=== PATIENT | female | born 1995 | race Caucasian/White ===

== ENCOUNTER 2019-12-16 18:33 | Emergency (ER) | payer BC, SELFPAY ==
--- NOTE | 2019-12-16 18:44 | PC.NURSE ---
PT DECLINED ICE FOR COMFORT AND WHEELCHAIR TO ROOM AND RADIOLOGY
[2019-12-16 18:45] VITALS: BP 137/68; PULSE 100; RESP 14; TEMP 37.2; O2SAT 100
--- NOTE | 2019-12-16 18:53 | ED.GENADULT ---
HPI - General Adult General Chief complaint: Upper Respiratory Infection Stated complaint: Swollen Tonsils Time Seen by Provider: 12/16/19 18:53 Source: patient Mode of arrival: ambulatory Limitations: no limitations History of Present Illness HPI narrative: 24-year-old female patient presents to the [facility] with complaints of enlarged tonsils that started yesterday and is gotten worse today. Patient states that the pain does get better with ibuprofen and denies any pain at this time. Patient denies any fevers, runny nose. Denies any coughing, chest pain or shortness of breath. Patient states she is still able to swallow at this time. Related Data Home Medications Medication Instructions Recorded Confirmed L norgest/e.estradiol-e.estrad 1 tablet PO DAILY 12/16/19 12/16/19 [Tito] Allergies Allergy/AdvReac Type Severity Reaction Status Date / Time oxycodone AdvReac Nausea and Verified 12/16/19 18:54 Vomiting Review of Systems Review of Systems: Narrative: CONSTITUTIONAL: Denies fever, chills, or sweats. EYES: Denies visual changes, redness, or discharge. ENT: Denies rhinorrhea, congestion, positive sore throat, denies otalgia. CARDIOVASCULAR: Denies chest pain, palpitations, or edema. RESPIRATORY: Denies cough or dyspnea. GASTROINTESTINAL: Denies abdominal pain, nausea, vomiting, or diarrhea. GENITOURINARY: Denies dysuria or hematuria. SKIN: Denies rash or itching. MUSCULOSKELETAL: Denies back pain, joint pain, or myalgia. NEUROLOGIC: Denies headache, numbness, or weakness. PSYCHIATRIC: Denies anxiety or depression. [facility] Family History Family History Mother Hypertension Family history of elevated blood lipids Family history of diabetes mellitus in first degree relative Grandparent Cerebrovascular accident, Onset Age: 83 Family history of malignant neoplasm of breast, Onset Age: 65 Social History Social History Smoking status: Never smoker Second hand tobacco smoke exposure: No Alcohol intake: never Comments At the time of my signature I agree with nursing past medical history, surgical, social, and family history. There is no relevant family history pertinent to the presenting complaint. Exam Narrative: Exam Narrative: GENERAL: Well-appearing, well-nourished, and in no acute distress. HEAD: Normocephalic, atraumatic. EYES: PERRLA and EOMI. ENT: Nares clear, no rhinorrhea or epistaxis. Mucous membranes moist. Posterior pharynx with 3+ tonsil enlargement and tonsil stones noted to bilateral tonsils. No erythema noted. NECK: Supple. No lymphadenopathy CHEST: Clear to auscultation. No respiratory distress. HEART: Regular rate and rhythm. No murmur heard. Normal peripheral pulses. ABDOMEN: Soft, nontender, nondistended, normal active bowel sounds. EXTREMITIES: Normal range of motion. No edema. SKIN: Warm, dry, no rash. NEURO: No focal deficits. Alert and oriented x3. Course Vital Signs Vital signs: Vital Signs Temperature 37.2 C 12/16/19 18:45 Pulse Rate 100 12/16/19 18:45 Respiratory Rate 14 12/16/19 18:45 Blood Pressure 137/68 12/16/19 18:45 Pulse Oximetry 100 12/16/19 18:45 Temperature 37.2 C 12/16/19 18:45 Pulse Rate 100 12/16/19 18:45 Respiratory Rate 14 12/16/19 18:45 Blood Pressure 137/68 12/16/19 18:45 Pulse Oximetry 100 12/16/19 18:45 Vital signs reviewed. Medical Decision Making Differential Diagnosis Differential Diagnosis: Differential diagnosis: Viral pharyngitis, pharyngitis, group A strep, infectious mononucleosis, gonococcal pharyngitis, exudative pharyngitis, oral candidiasis. Chronic allergies, postnasal drip, GERD, abscess formation, but glottitis, retropharyngeal abscess formation, or airway obstruction. Notify patient that her bedside strep test is negative. Discussed with her that the tonsil st
== END 2019-12-16 19:08 | disposition home or self-care (01) ==
PROVIDERS: Emergency Provider Nurse Practitioner Family; PCP Nurse Practitioner Family
DX: J35.8 Other chronic diseases of tonsils and adenoids (principal); J03.90 Acute tonsillitis, unspecified
CPT/HCPCS: 87081; 87880; 99203; G0463

== ENCOUNTER 2021-11-11 12:34 | Emergency (ER) | payer BC, SELFPAY ==
[2021-11-11 12:40] VITALS: BP 122/71; PULSE 99; RESP 16; TEMP 36.8; O2SAT 100
--- NOTE | 2021-11-11 12:48 | ED.SKABFB ---
HPI - Skin/Abscess/Foreign Bdy General Chief complaint: Skin/Abscess/Foreign Body Stated complaint: Rash Time Seen by Provider: 11/11/21 12:48 Source: patient Mode of arrival: ambulatory Limitations: no limitations History of Present Illness HPI narrative: 26 yo F presents with c/o rash to arms, legs and trunk starting 2 days ago. Not itchy or painful. Has not tried any OTC steroid cream. [place] the [place] No exposure to new foods, hygiene products, etc. All systems reviewed and negative except as noted above. Related Data Home Medications Medication Instructions Recorded Confirmed L norgest/E estradiol-E estrad 1 tablet PO DAILY 12/16/19 11/11/21 0.15 mg-30 mcg (84)/10 mcg(7) tabs,3mos (Jaimiess) meloxicam 15 mg tablet 15 tablet PO DAILY 11/11/21 11/11/21 Allergies Allergy/AdvReac Type Severity Reaction Status Date / Time oxycodone AdvReac Nausea and Verified 11/11/21 12:42 Vomiting Review of Systems Review of Systems: CONSTITUTIONAL: Denies fever, chills, or sweats. EYES: Denies visual changes, redness, or discharge. ENT: Denies rhinorrhea, congestion, sore throat, or otalgia. CARDIOVASCULAR: Denies chest pain, palpitations, or edema. RESPIRATORY: Denies cough or dyspnea. GASTROINTESTINAL: Denies abdominal pain, nausea, vomiting, or diarrhea. GENITOURINARY: Denies dysuria or hematuria. SKIN: Reports rash, no itching. MUSCULOSKELETAL: Denies back pain, joint pain, or myalgia. NEUROLOGIC: Denies headache, numbness, or weakness. PSYCHIATRIC: Denies anxiety or depression. All other systems reviewed are negative, except as documented in HPI. [facility] Family History Family History Mother Hypertension Family history of elevated blood lipids Family history of diabetes mellitus in first degree relative Grandparent Cerebrovascular accident, Onset Age: 83 Family history of malignant neoplasm of breast, Onset Age: 65 Social History Social History Smoking status: Never smoker Second hand tobacco smoke exposure: No Alcohol intake: never Comments At time of signature, agree with nursing past medical, surgical, social and family history. There is no relevant family history pertinent to the presenting complaint. Exam Narrative: GENERAL: This is a well-nourished, well-developed patient, in no apparent distress. HEAD: normocephalic, atraumatic. EYES: PERRL. Sclera clear/white. Vision is grossly intact. EARS: External ears normal NOSE: External nose normal NECK: Neck supple, non-tender without lymphadenopathy, masses or thyromegaly. CARDIOVASCULAR: Regular rate and rhythm without murmurs, gallops, or rubs. RESPIRATORY: Clear to auscultation. Breath sounds equal bilaterally. No wheezes, rales, or rhonchi. SKIN: warm, Dry, intact, good texture and turgor. several papulosquamous oval lesions to trunk, neck, upper arms and upper legs. NEURO: awake, alert, and oriented to person, place and time. There were no obvious focal neurologic abnormalities. EXTREMITIES: No joint tenderness, effusion, or edema noted. Course Course Level of Care: Express Care Visit Vital Signs Vital signs: Vital Signs Temperature 36.8 C 11/11/21 12:40 Pulse Rate 99 11/11/21 12:40 Respiratory Rate 16 11/11/21 12:40 Blood Pressure 122/71 11/11/21 12:40 Pulse Oximetry 100 11/11/21 12:40 Oxygen Delivery Room Air 11/11/21 12:40 Temperature 36.8 C 11/11/21 12:40 Pulse Rate 99 11/11/21 12:40 Respiratory Rate 16 11/11/21 12:40 Blood Pressure 122/71 11/11/21 12:40 Pulse Oximetry 100 11/11/21 12:40 Oxygen Delivery Room Air 11/11/21 12:40 Reviewed MDM - Skin/Abscess/Foreign Bdy MDM Narrative Medical decision making narrative: Patient is aware of diagnosis, understands and agrees to treatment plan. Anticipatory guidance given. Patient ag
== END 2021-11-11 12:59 | disposition home or self-care (01) ==
PROVIDERS: Emergency Provider Nurse Practitioner Family; PCP Nurse Practitioner Family
DX: L42 Pityriasis rosea (principal)
CPT/HCPCS: 99213; G0463

== ENCOUNTER 2023-08-02 18:34 | Emergency (ER) | payer BC, SELFPAY ==
[2023-08-02 18:43] VITALS: BP 129/73; PULSE 94; RESP 18; TEMP 36.9; O2SAT 100
--- NOTE | 2023-08-02 18:51 | ED.EYEPROB ---
HPI - Eye Problem General Chief complaint: Eye Problems Stated complaint: poss pink eye History of Present Illness HPI Narrative: Patient presents with eye itching and both eyes were matted shut this morning. No vision problems no pain to eyes. Patient states she has been exposed to pinkeye. Related Data Home Medications Medication Instructions Recorded Confirmed L norgest/E estradiol-E estrad 1 tablet PO DAILY 12/16/19 11/11/21 0.15 mg-30 mcg (84)/10 mcg(7) tabs,3mos (Jaimiess) Allergies Allergy/AdvReac Type Severity Reaction Status Date / Time oxycodone AdvReac Nausea and Verified 11/11/21 12:42 Vomiting Review of Systems Review of Systems: CONSTITUTIONAL: Denies fever, chills, or sweats. EYES: Denies visual changes, redness, or discharge. ENT: Denies rhinorrhea, congestion, sore throat, or otalgia. CARDIOVASCULAR: Denies chest pain, palpitations, or edema. RESPIRATORY: Denies cough or dyspnea. GASTROINTESTINAL: Denies abdominal pain, nausea, vomiting, or diarrhea. GENITOURINARY: Denies dysuria or hematuria. SKIN: Denies rash or itching. MUSCULOSKELETAL: Denies back pain, joint pain, or myalgia. NEUROLOGIC: Denies headache, numbness, or weakness. PSYCHIATRIC: Denies anxiety or depression. [facility] Family History Family History Mother Hypertension Family history of elevated blood lipids Family history of diabetes mellitus in first degree relative Grandparent Cerebrovascular accident, Onset Age: 83 Family history of malignant neoplasm of breast, Onset Age: 65 Social History Social History Smoking status: Never smoker Second hand tobacco smoke exposure: No Alcohol intake: never Comments At time of signature, agree with nursing past medical, surgical, social and family history. There is no relevant family history pertinent to the presenting complaint Exam Narrative: GENERAL: Well-appearing, well-nourished, and in no acute distress. HEAD: Normocephalic, atraumatic. EYES: PERRLA and EOMI. ENT: Nares clear, no rhinorrhea or epistaxis. Mucous membranes moist. NECK: Supple. CHEST: Clear to auscultation. No respiratory distress. HEART: Regular rate and rhythm. No murmur heard. Normal peripheral pulses. ABDOMEN: Soft, nontender, nondistended, normal active bowel sounds. EXTREMITIES: Normal range of motion. No edema. SKIN: Warm, dry, no rash. NEURO: No focal deficits. Alert and oriented x3. [place]ia Coma Scale Eye Opening: Spontaneous 4 [place] Coma Scale Motor: Obeys Commands 6 [place] Coma Scale Verbal: Oriented 5 [place] Coma Scale Total 15 Eyes: Conjunctivae: conjunctival abnormality bilateral conjunctival injection Course Course Level of Care: Express Care Visit Vital Signs Vital signs: Vital Signs Temperature 36.9 C 08/02/23 18:43 Pulse Rate 94 08/02/23 18:43 Respiratory Rate 18 08/02/23 18:43 Blood Pressure 129/73 08/02/23 18:43 Pulse Oximetry 100 08/02/23 18:43 Oxygen Delivery Room Air 08/02/23 18:43 Temperature 36.9 C 08/02/23 18:43 Pulse Rate 94 08/02/23 18:43 Respiratory Rate 18 08/02/23 18:43 Blood Pressure 129/73 08/02/23 18:43 Pulse Oximetry 100 08/02/23 18:43 Oxygen Delivery Room Air 08/02/23 18:43 Discharge Plan Discharge Clinical Impression: Conjunctivitis Patient Disposition: Home, Self-Care Condition: Stable Instructions: Antibiotic Form, Conjunctivitis (ED) Additional Instructions: Conjunctivitis is spread by [id number] contact or by touching a contaminated surface. You can use artificial tears, cold and warm compresses-use, different compress for each eye, and increase hygiene such as hand-washing. Do not wear contacts for 1 week, if applicable. Do not return for 24 hours to daycare, school, workplace for 24 hours after first antibiotic dose. Change bedding. fol
== END 2023-08-02 18:55 | disposition home or self-care (01) ==
PROVIDERS: Emergency Provider Nurse Practitioner Family; PCP Nurse Practitioner Family
DX: H10.9 Unspecified conjunctivitis (principal)
CPT/HCPCS: 99213; G0463